=== PATIENT | male | born 1965 | race Caucasian/White ===

== ENCOUNTER → 2023-01-11 16:53 | Outpatient (BNVA) | payer OTHER, SELFPAY | PROVIDERS: Visit Provider Nurse Practitioner Family | DX: Z20.2 Contact with and (suspected) exposure to infections with a predominantly sexual mode of transmission (principal); L03.032 Cellulitis of left toe; Z13.220 Encounter for screening for lipoid disorders; M79.675 Pain in left toe(s); G62.9 Polyneuropathy, unspecified; R20.2 Paresthesia of skin; M79.601 Pain in right arm; M79.602 Pain in left arm | CPT/HCPCS: 80053; 80061; 82306; 82607; 82746; 83036; 84550; 87491; 87591; 87661 ==

== ENCOUNTER → 2023-01-12 | Outpatient (BNVA) | payer OTHER, SELFPAY | PROVIDERS: Visit Provider Nurse Practitioner Family | DX: Z20.2 Contact with and (suspected) exposure to infections with a predominantly sexual mode of transmission (principal) | CPT/HCPCS: 87491; 87591 ==

== ENCOUNTER 2023-02-07 15:01 | Emergency (ER) | payer OTHER, SELFPAY ==
[2023-02-07 15:06] VITALS: BP 153/95; PULSE 80; RESP 16; TEMP 36.8; O2SAT 96; BMI 26.6
--- NOTE | 2023-02-07 15:16 | ED_ITS ---
HPI - Extremity Problem General: Chief complaint: Extremity Problem,Nontraumatic Stated complaint: right hand pain Time Seen by Provider: 02/07/23 15:12 Source: patient Mode of arrival: ambulatory Limitations: no limitations History of Present Illness: Patient is a nice 57-year-old male who presents to ED today with a complaint of swelling and redness to the right hand. Patient states he initially began noticing some itching to the dorsum of the hand while at work on Tuesday. He states the following day the entire hand was swollen and erythematous. He states he was seen at [facility] and received an IM steroid shot. He was given prescriptions for Bactrim as well as a Medrol Dosepak which he has yet to fill. He states the day following the steroid his hand swelling and redness seemed vastly improved but states today he began noticing swelling and redness yet again. He states most of his symptoms seem focused to the fourth and fifth MCP joints. He denies any recent injury such as cuts or scrapes. 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 He has not noticed any red streaking up his arm. No fevers. States hand is still itchy. MD Complaint: extremity pain, extremity swelling, joint swelling and joint pain Onset (ago): day(s) Pain Consistency: constant Location: right and upper extremity Quality: other (itching) Relieving factors: nothing Exacerbating factors: range of motion Associated symptoms: Reports no associated symptoms; Deny fever(s) Review of Systems Const: Denies: fever(s), chills, body aches, fatigue or malaise Musc: Reports: extremity pain, extremity swelling, joint pain, joint swelling and joint warmth; Denies: neck pain or back pain Neuro: Denies: numbness in extremities, weakness in extremities or sensory changes Physical Exam Const: COMMON NORMALS: no acute distress, average body habitus, patient or iented x3, no limitations, healthy appearing, alert and well nourished Resp: COMMON NORMALS: normal respiratory effort and clear to auscultation b ilaterally AUSCULTATION: clear to auscultation bilaterally Cardio: COMMON NORMALS: regular rate and regular rhythm RATE: regular rate RHYTHM: regular rhythm Extremity: COMMON NORMALS: capillary refill normal GENERAL: Yes normal exam except as noted RIGHT UPPER EXTREMITY: Yes hand & digits OTHER: pt has edema and erythema affecting the ulnar dorsal aspect of his R hand with localized swelling overlying the 5th MCP joint; warmth appreciated; no bites, scratches, wounds, cuts, etc noted; no lymphangitic streaking; patient's digits are easily mobile and pain does not seem out of proportion to exam Neuro: COMMON NORMALS: patient oriented x3 SENSORIUM/ORIENTATION: Yes alert Course Vital Signs: Vital signs: Vital Signs Temperature 98.2 F 02/07/23 15:06 Pulse Rate 90 02/07/23 18:15 Respiratory Rate 16 02/07/23 18:15 Blood Pressure 138/94 02/07/23 18:15 Pulse Oximetry 95 02/07/23 18:00 Oxygen Delivery Me thod Room Air 02/07/23 16:48 MDM - Extremity (Nontraumatic) Medical Decision Making Patient here with edema, redness, and warmth affecting the dorsal ulnar aspect of the right hand. Patient maintains full range of motion of his digits and chey n does not seem to be out of proportion to exam. At this point I would have a low suspicion for an infectious tenosynovitis. This would be unlikely as this rarely affects extensor tendon sheaths. Given the history of working at a tire shop and often using tools that he has to crank with his right hand, he often feels like the ulnar aspect of his right hand is strained. This could support more of an inflammatory tendon process. He did get a substantial improvement with one IM injection of steriods from [facility]. Other DDx includes tissue infection, gout, pseudogout, rheumatoid arthritis. He did present to clinic last month with a red/swollen great toe (possibly gout?) Again, based clinically at this time lower suspicion for infectious tenosynovitis or septic arthritis. I am going to treat him with IV dexamethasone, toradol and vanc (I think infection is less likely but as a precautionary). I would like him to fill his prescriptions for Bactrim and Medrol Dosepak. Want him to follow-up with primary care in 48 hours. Strict return to ED precautions given. Of note he was recently treated for Trichomonas. He states his gonorrhea/chlamydia was negative. Lab Data 02/07/23 15:46 02/07/23 15:46 Laboratory Results WBC 15.04 10^3/uL (3.29-11.43) H 02/07/23 15:46 RBC 4.67 10^6/uL (3.85-5.65) 02/07/23 15:46 Hgb 15.30 g/dL (11.27-16.99) 02/07/23 15:46 Hct 43.4 % (37-53) 02/07/23 15:46 MCV 92.9 fl (82-101) 02/07/23 15:46 MCH 32.8 pg (27-33) 02/07/23 15:46 MCHC 35.3 g/dL (30-55) 02/07/23 15:46 RDW 11.9 % (12.1-15.1) L 02/07/23 15:46 Plt Count 271 10^3/cmm (157-399) 02/07/23 15:46 MPV 9.0 fL (7.4-10.4) 02/07/23 15:46 Neut % (Auto) 80.4 % 02/07/23 15:46 Lymph % (Auto) 9.8 % 02/07/23 15:46 [place] % (Auto) 6.9 % 02/07/23 15:46 Eos % (Auto) 0.0 % 02/07/23 15:46 Baso % (Auto) 0.2 % 02/07/23 15:46 Neut # (Auto) 12.08 10^3/uL (1.8-7.7) H 02/07/23 15:46 Lymph # (Auto) 1.5 10^3/uL (0.8-4.8) 02/07/23 15:46 [place] # (Auto) 1.0 10^3/uL (0.2-0.9) H 02/07/23 15:46 Eos # (Auto) 0.0 10^3/uL (0.0-0.8) 02/07/23 15:46 Baso # (Auto) 0.0 10^3/uL (0.0-0.1) 02/07/23 15:46 Nucleated RBC % (auto) 0 % 02/07/23 15:46 Nucleated RBCs # 0.0 /100WBC 02/07/23 15:46 ESR 18 mm/hr (0-10) H 02/07/23 15:46 Sodium 140 mmol/L (136-145) 02/07/23 15:46 Potassium 4.5 mmol/L (3.5-5.1) 02/07/23 15:46 Chloride 102 mmol/L (98-107) 02/07/23 15:46 Carbon Dioxide 26 mmol/L (22-29) 02/07/23 15:46 Anion Gap 16.5 (5-19) 02/07/23 15:46 BUN 22 mg/dL (6-20) H 02/07/23 15:46 Creatinine 0.8 mg/dL (0.7-1.2) 02/07/23 15:46 GFR Calculation 99.6 mL/min (90-130) 02/07/23 15:46 Glucose 140 mg/dL (65-115) H 02/07/23 15:46 Calculated Osmolality 296 mOsm/kg (285-295) H 02/07/23 15:46 Lactic Acid 1.4 mmol/L (0.5-2.2) 02/07/23 15:46 Calcium 10.2 mg/dL (8.5-10.5) 02/07/23 15:46 Total Bilirubin 0.4 mg/dL (0.15-1.2) 02/07/23 15:46 AST 16 U/L (0-40) 02/07/23 15:46 ALT 19 U/L (0-41) 02/07/23 15:46 Alkaline Phosphatase 133 U/L (40-130) H 02/07/23 15:46 C-Reactive Protein 54.4 mg/L (0.0-4.9) H 02/07/23 15:46 Total Protein 7.8 g/dL (6.6-8.7) 02/07/23 15:46 Albumin 4.8 g/dL (3.5-5.2) 02/07/23 15:46 Globulin 3.0 g/dL (1.3-4.6) 02/07/23 15:46 All radiology interpretation(s) finalized by discharge Discharge Plan Discharge Patient Disposition: Home Clinical Impression: Tenosynovitis of right hand Condition: Stable Prescriptions: No Action No Known Home Medications Discharge Orders: Discharge ED (Routine); Ordered 02/07/23 Ordered By: Annie Guy Activity Restrictions/Additional Instructions: As we discussed I want you to fill your prescriptions for the Bactrim antibiotic and Medrol Dosepak steroid and begin taking immediately. In addition I want you to start taking 600-800 mg of ibuprofen every 6-8 hours. I would like you to follow-up with your primary care provider in 48 hours. As we discussed if symptoms worsen (worsening pain, swelling, redness, red streaking up your arm, fevers, or any other concerning symptom) want you to immediately return to the emergency department. Coding Level of Care Code ED Weighing Station Operator for Emily Mercado
[2023-02-07 15:21] VITALS: O2SAT 91
--- NOTE | 2023-02-07 15:25 | XR_ITS ---
WS: [id number] EXAMINATION: XR hand RT min 3V* [id number] REASON FOR EXAM: redness/swelling COMPARISON: None available. ORDER DATE: 02/07/2023 3:26 PM FINDINGS/IMPRESSION: The location of the clinical findings noted above is not specified. There is a metallic density perha ps a foreign body immediately lateral to the second MCP joint There is generalized joint mild space narrowing. There appears to be soft tissue edema along the dors al medial aspect of the hand approximating the region of the fifth MCP joint no specific sign of any opaque foreign body in this region.. There are no acute fractures or dislocations.
[2023-02-07 15:53] LABS: Basophils % 0.2 %; Hematocrit 43.4 % (37-53); Lymphocytes # 1.5 10^3/uL (0.8-4.8); Lymphocytes % 9.8 %; Mean Corpuscular HGB Conc 35.3 g/dL (30-55); Mean Corpuscular Hemoglobin 32.8 pg (27-33); Mean Corpuscular Volume 92.9 fl (82-101); Monocytes % 6.9 %; Neutrophils # 12.08 10^3/uL (1.8-7.7); Neutrophils % 80.4 %; Nucleated Red Blood Cells % 0 %; Platelet Count 271 10^3/cmm (157-399); Red Blood Count 4.67 10^6/uL (3.85-5.65); Red Cell Distribution Width 11.9 % (12.1-15.1); White Blood Count 15.04 10^3/uL (3.29-11.43)
[2023-02-07 15:54] LABS: Erythrocyte Sedimentation Rate 18 mm/hr (0-10)
[2023-02-07 16:12] LABS: Alanine Aminotransferase 19 U/L (0-41); Albumin Level 4.8 g/dL (3.5-5.2); Alkaline Phosphatase 133 U/L (40-130); Anion Gap 16.5 (5-19); Aspartate Amino Transferase 16 U/L (0-40); Blood Urea Nitrogen 22 mg/dL (6-20); C Reactive Protein 54.4 mg/L (0.0-4.9); Calcium 10.2 mg/dL (8.5-10.5); Carbon Dioxide 26 mmol/L (22-29); Chloride 102 mmol/L (98-107); Glomerular Filtration Rate 99.6 mL/min (90-130); Glucose 140 mg/dL (65-115); Osmolality Calculated 296 mOsm/kg (285-295); Potassium 4.5 mmol/L (3.5-5.1); Sodium 140 mmol/L (136-145); Total Bilirubin 0.4 mg/dL (0.15-1.2); Total Protein 7.8 g/dL (6.6-8.7)
[2023-02-07 16:13] LABS: Lactic Sepsis W/Reflex 1.4 mmol/L (0.5-2.2)
[2023-02-07] MEDS: ketorolac 30 mg/mL INJ IVP (16:39)
[2023-02-07] MEDS: dexamethasone 4 mg/mL INJ 8 MG IVP (16:39)
[2023-02-07 16:48] VITALS: BP 138/102; PULSE 75; RESP 16; O2SAT 97
[2023-02-07] MEDS: vancomycin 1,000 MG in sodium chloride 0.9% 250 ML 250 MG IV (16:58)
[2023-02-07 18:00] VITALS: BP 138/94; PULSE 90; RESP 16; O2SAT 95
[2023-02-07 18:15] VITALS: BP 138/94; PULSE 90; RESP 16
== END 2023-02-07 18:16 | disposition home or self-care (01) ==
PROVIDERS: Emergency Provider Physician Assistant
DX: M65.841 Other synovitis and tenosynovitis, right hand (principal)
CPT/HCPCS: 73130; 80053; 83605; 85025; 85651; 86140; 96374; 96375; 99284; J1100; J1885; J3370; J7050

== ENCOUNTER → 2023-04-14 11:24 | Outpatient (BNVA) | payer OTHER, SELFPAY | PROVIDERS: Visit Provider Nurse Practitioner Family | DX: J06.9 Acute upper respiratory infection, unspecified (principal); J32.0 Chronic maxillary sinusitis; R20.2 Paresthesia of skin; M79.601 Pain in right arm; M79.602 Pain in left arm; R20.0 Anesthesia of skin; R53.83 Other fatigue | CPT/HCPCS: 82607; 82746; 84402; 84403; 87486; 87581; 87633 ==

== ENCOUNTER 2024-05-01 10:29 | Emergency (ER) | payer OTHER, SELFPAY ==
[2024-05-01 10:36] VITALS: BP 144/91; PULSE 72; RESP 18; TEMP 36.8; O2SAT 99; BMI 26.6
--- NOTE | 2024-05-01 12:13 | ED_ITS ---
HPI - Extremity Problem 2 General: Chief complaint: Extremity Problem,Nontraumatic Stated complaint: feet pain Time Seen by Provider: 05/01/24 11:58 Source: patient Mode of arrival: ambulatory Limitations: no limitations History of Present Illness: Patient is a 58-year-old male presents to ED today with a complaint of burning to his bilateral feet. Patient states symptoms have been present for several months but looking at previous documentation, he has seen his primary care provider for this as far back as February 2023. It looks like he has been treated with duloxetine as well as gabapentin. Patient states these medications did not work. Looks like his dose of gabapentin was 100 mg 3 times daily. He does not ever remember this medication being titrated up to effect. He states at some point he was post to have nerve conduction studies as well as arterial ultrasounds but these were never performed. Patient states he is not a diabetic that he is aware of. He states he is having trouble sleeping due to the burning. He has not noticed any color or temperature changes to his legs or feet. No claudication-like symptoms. MD Complaint: extremity pain Onset (ago): month(s) Pain Consistency: constant Location: right and lower extremity Radiation: none Relieving factors: nothing Exacerbating factors: nothing Associated symptoms: Reports no associated symptoms; Deny chest pain, fever(s) or rash Related Data Home Medications Medication Instructions Recorded Confirmed ibuprofen 200 mg tablet 600 mg PO Q6H PRN Pain 05/01/24 05/01/24 Previous Rx's Medication Instructions Recorded gabapentin 300 mg capsule 300 mg PO DAILY #60 caps 05/01/24 Allergies Allergy/AdvReac Type Severity Reaction Status Date / Time No Known Allergies Allergy Verified 05/01/24 10:38 Review of Systems 2 Const: Denies: fever(s), chills, body aches, fatigue or malaise Card: Denies: chest pain Resp: Denies: dyspnea GI: Denies: abdominal pain Musc: Reports: extremity pain; Denies: back pain, extremity swelling, joint redness, joint warmth, limited range of motion, muscle cramps or muscle weakness Skin/Breast: Denies: rash Neuro: Reports: sensory changes (bilateral feet); Denies: headache(s) or weakness in extremities Physical Exam 2 Const: COMMON NORMALS: no acute distress, average body habitus, patient oriented x3, no limitations, healthy appearing, alert and well nourished G ENERAL APPEARANCE: cooperative ORIENTATION/CONSCIOUSNESS: Yes awake, Yes oriented to person, Yes oriented to place and Yes oriented to time Resp: COMMON NORMALS: normal respiratory effort and clear to auscultation bilaterally AUSCULTATION: clear to auscultation bilaterally Cardio: COMMON NORMALS: regular rate and regular rhythm RATE: regular rate RHYTHM: regular rhythm Back/Pelvis: COMMON NORMALS: thoracic and lumbar spine normal to inspection, no thoracic nor lumbar tenderness, thoraco-lumbar ROM normal and straight leg raise negative bilaterally Extremity: COMMON NORMALS: full ROM, capillary refill normal, no clubbing, cyanosis or edema, no calf tenderness and no pedal edema GENERAL: Yes normal exam except as noted OTHER: bilateral feet are tender to touch; no erythema/edema noted; DP/PT pulses are easily palpated; onychomycosis to bilateral toenails/fingernails; no open sores/wounds Neuro: COMMON NORMALS: patient oriented x3, moves all extremities, no focal motor deficits and gait normal SENSORIUM/ORIENTATION: Yes alert, Yes oriented to person, Yes oriented to place and Yes oriented to time Skin: COMMON NORMALS: no rashes or lesions noted GENERAL SKIN EXAM: no rashes or lesions noted TRAUMA: no lacerations or abrasions Course 2 Vital Signs: Vital signs: Vital Signs Temperature 98.2 F 05/01/24 10:36 Pulse Rate 72 05/01/24 10:36 Respiratory Rate 18 05/01/24 10:36 Blood Pressure 144/91 05/01/24 10:36 Pulse Oximetry 99 05/01/24 10:36 Oxygen Delivery Me thod Room Air 05/01/24 10:36 MDM - Extremity (Nontraumatic) Medical Decision Making Patient's symptoms are chronic and likely related to neuropathy. Discussed various etiologies for this and ultimately he needs further PCP follow up. States he has not been seen in quite some time because he lost insurance but is planning on getting this back. Labs obtained here and unremarkable. He was at once time placed on gabapentin 100mg TID which is low and never tapered up. I think it is reasonable to start him at 300mg daily and have him increase this to 300mg TID and would encourage PCP follow up as this can further be increased based on effect. I think further evaluation probably needs to be done-just not emergently today. Medical Records I reviewed the patient's medical records. Lab Data I reviewed the patient's lab results. 05/01/24 12:37 05/01/24 12:37 Laboratory Results WBC 5.78 10^3/uL (3.29-11.43) 05/01/24 12:37 RBC 4.81 10^6/uL (3.85-5.65) 05/01/24 12:37 Hgb 15.50 g/dL (11.27-16.99) 05/01/24 12:37 Hct 46.5 % (37-53) 05/01/24 12:37 MCV 96.7 fl (82-101) 05/01/24 12:37 MCH 32.2 pg (27-33) 05/01/24 12:37 MCHC 33.3 g/dL (30-55) 05/01/24 12:37 RDW 11.5 % (12.1-15.1) L 05/01/24 12:37 Plt Count 239 10^3/cmm (157-399) 05/01/24 12:37 MPV 8.7 fL (7.4-10.4) 05/01/24 12:37 Neut % (Auto) 58.7 % 05/01/24 12:37 Lymph % (Auto) 31.3 % 05/01/24 12:37 [place] % (Auto) 7.1 % 05/01/24 12:37 Eos % (Auto) 1.2 % 05/01/24 12:37 Baso % (Auto) 0.5 % 05/01/24 12:37 Neut # (Auto) 3.39 10^3/uL (1.8-7.7) 05/01/24 12:37 Lymph # (Auto) 1.8 10^3/uL (0.8-4.8) 05/01/24 12:37 [place] # (Auto) 0.4 10^3/uL (0.2-0.9) 05/01/24 12:37 Eos # (Auto) 0.1 10^3/uL (0.0-0.8) 05/01/24 12:37 Baso # (Auto) 0.0 10^3/uL (0.0-0.1) 05/01/24 12:37 Nucleated RBC % (auto) 0 % 05/01/24 12:37 Nucleated RBCs # 0.0 /100WBC 05/01/24 12:37 Sodium 140 mmol/L (136-145) 05/01/24 12:37 Potassium 4.3 mmol/L (3.5-5.1) 05/01/24 12:37 Chloride 102 mmol/L (98-107) 05/01/24 12:37 Carbon Dioxide 25 mmol/L (22-29) 05/01/24 12:37 Anion Gap 17.3 (5-19) 05/01/24 12:37 BUN 12 mg/dL (6-20) 05/01/24 12:37 Creatinine 0.7 mg/dL (0.7-1.2) 05/01/24 12:37 GFR Calculation 115.8 mL/min (90-130) 05/01/24 12:37 Glucose 92 mg/dL (65-115) 05/01/24 12:37 Calculated Osmolality 289 mOsm/kg (285-295) 05/01/24 12:37 Calcium 9.5 mg/dL (8.5-10.5) 05/01/24 12:37 Magnesium 1.8 mg/dL (1.7-2.3) 05/01/24 12:37 Total Bilirubin 0.6 mg/dL (0.15-1.2) 05/01/24 12:37 AST 15 U/L (0-40) 05/01/24 12:37 ALT 14 U/L (0-41) 05/01/24 12:37 Alkaline Phosphatase 127 U/L (40-130) 05/01/24 12:37 Total Protein 7.1 g/dL (6.6-8.7) 05/01/24 12:37 Albumin 4.4 g/dL (3.5-5.2) 05/01/24 12:37 Globulin 2.7 g/dL (1.3-4.6) 05/01/24 12:37 No radiology studies performed this visit Discharge Plan Discharge Patient Disposition: Home Clinical Impression: Numbness and tingling of both feet Condition: Stable Prescriptions: New gabapentin 300 mg capsule 300 mg PO DAILY Qty: 60 0RF Rx Instructions: Take 300mg PO QD x 1 day, then 300mg PO BID x 1 day, then 300mg PO TID thereafter No Action ibuprofen 200 mg Tablet 600 mg PO Q6H PRN (Reason: Pain) Discharge Orders: Discharge ED (Routine); Ordered 05/01/24 Ordered By: Annie Guy Patient Instructions: Peripheral Neuropathy Activity Restrictions/Additional Instructions: Blood work here is unremarkable. I will place you back on gabapentin with a plan to titrate this upward over the next week (up to 900 mg daily). This can further be titrated up based on response by primary care. Recommend he follow- up with him in the next 1 to 2 weeks for further evaluation of your neuropathy. As we discussed, this does require further evaluation through primary care. If you are not able to obtain insurance, you may qualify for financial sales consultant through the hospital. Registration can provide you with this paperwork. Coding Level of Care Code ED Circuits Engineer for Emily Mercado
--- NOTE | 2024-05-01 12:22 | PC.PHAR ---
Pt states he needs more than ibuprofen 200mg so he can stay working.
[2024-05-01 12:49] LABS: Basophils % 0.5 %; Eosinophils # 0.1 10^3/uL (0.0-0.8); Eosinophils % 1.2 %; Hematocrit 46.5 % (37-53); Lymphocytes # 1.8 10^3/uL (0.8-4.8); Lymphocytes % 31.3 %; Mean Corpuscular HGB Conc 33.3 g/dL (30-55); Mean Corpuscular Hemoglobin 32.2 pg (27-33); Mean Corpuscular Volume 96.7 fl (82-101); Mean Platelet Volume 8.7 fL (7.4-10.4); Monocytes # 0.4 10^3/uL (0.2-0.9); Monocytes % 7.1 %; Neutrophils # 3.39 10^3/uL (1.8-7.7); Neutrophils % 58.7 %; Nucleated Red Blood Cells % 0 %; Platelet Count 239 10^3/cmm (157-399); Red Blood Count 4.81 10^6/uL (3.85-5.65); Red Cell Distribution Width 11.5 % (12.1-15.1); White Blood Count 5.78 10^3/uL (3.29-11.43)
[2024-05-01 13:04] LABS: Alanine Aminotransferase 14 U/L (0-41); Albumin Level 4.4 g/dL (3.5-5.2); Alkaline Phosphatase 127 U/L (40-130); Anion Gap 17.3 (5-19); Aspartate Amino Transferase 15 U/L (0-40); Blood Urea Nitrogen 12 mg/dL (6-20); Calcium 9.5 mg/dL (8.5-10.5); Carbon Dioxide 25 mmol/L (22-29); Chloride 102 mmol/L (98-107); Globulin 2.7 g/dL (1.3-4.6); Glomerular Filtration Rate 115.8 mL/min (90-130); Glucose 92 mg/dL (65-115); Magnesium 1.8 mg/dL (1.7-2.3); Osmolality Calculated 289 mOsm/kg (285-295); Potassium 4.3 mmol/L (3.5-5.1); Sodium 140 mmol/L (136-145); Total Bilirubin 0.6 mg/dL (0.15-1.2); Total Protein 7.1 g/dL (6.6-8.7)
[2024-05-01 13:52] VITALS: BP 121/83; PULSE 79; O2SAT 98
== END 2024-05-01 13:55 | disposition home or self-care (01) ==
PROVIDERS: Emergency Provider Physician Assistant
DX: R20.0 Anesthesia of skin (principal); R20.2 Paresthesia of skin
CPT/HCPCS: 36415; 80053; 83735; 85025; 99283

== ENCOUNTER 2024-09-10 15:21 | Emergency (ER) | payer SELFPAY ==
[2024-09-10 15:30] VITALS: BP 130/94; PULSE 108; TEMP 37.1; O2SAT 97; BMI 26.9
--- NOTE | 2024-09-10 18:00 | W.ED.EXTPRO ---
HPI - Extremity Problem General: Chief complaint: Extremity Problem,Nontraumatic Stated complaint: toes turned and turning purple both feet Time Seen by Provider: 09/10/24 17:50 History of Present Illness: 58-year-old male presents emergency room with redness and inflammation slight swelling and pain to his left second toe. He does not recall any particular injury to it he has not had any drainage. He says he is chronically has pain to his toes but he says never he walks barefoot on a cold service he his toes cramp and turn purple. Patient cannot recall any injury to his feet. No fever sweats or chills Associated symptoms: Deny chest pain, fever(s) or rash Related Data Home Medications ?Medication ?Instructions ?Recorded ?Confirmed ibuprofen 200 mg tablet 600 mg PO Q6H PRN Pain 05/01/24 05/01/24 Previous Rx's ?Medication ?Instructions ?Recorded gabapentin 300 mg capsule 300 mg PO DAILY #60 caps 05/01/24 Allergies Allergy/AdvReac Type Severity Reaction Status Date / Time Penicillins Allergy Unknown Verified 09/10/24 15:37 Review of Systems Const: Denies: fever(s) or chills Card: Denies: chest pain Resp: Denies: dyspnea : Denies: dysuria, urinary frequency or urinary urgency Musc: Reports: extremity pain (Left second toe); Denies: neck pain or back pain Skin/Breast: Denies: rash Physical Exam Const: COMMON NORMALS: no acute distress GENERAL APPEARANCE: cooperative and comfortable ORIENTATION/CONSCIOUSNESS: Yes awake, Yes oriented to person, Yes oriented to place and Yes oriented to time HENMT: COMMON NORMALS: normocephalic, atraumatic and hearing grossly normal bilaterally HEAD & SCALP: normocephalic and atraumatic Resp: COMMON NORMALS: normal respiratory effort, No retractions, No use of accessory muscles and clear to auscultation bilaterally AUSCULTATION: clear to auscultation bilaterally Cardio: COMMON NORMALS: regular rate, regular rhythm and No murmurs present (Cardio) RATE: regular rate RHYTHM: regular rhythm Extremity: COMMON NORMALS: capillary refill normal, no clubbing, cyanosis or edema, no calf tenderness and no pedal edema OTHER: Left second toe has hematoma on the dorsum. There is no fluctuant areas no signs of infection no active drainage no laceration no obvious deformity Neuro: SENSORIUM/ORIENTATION: Yes oriented to person, Yes oriented to place and Yes oriented to time Skin: COMMON NORMALS: no rashes or lesions noted GENERAL SKIN EXAM: no rashes or lesions noted Course Vital Signs: Vital signs: Vital Signs Temperature 98.8 F 09/10/24 15:30 Pulse Rate 83 09/10/24 19:10 Respiratory Rate 18 09/10/24 19:10 Blood Pressure 173/114 09/10/24 19:10 Pulse Oximetry 95 09/10/24 19:10 Oxygen Delivery Me thod Room Air 09/10/24 18:57 MDM - Extremity (Nontraumatic) Medical Decision Making X-ray of the left foot shows a second toe fracture. Discussed with the patient the results. He was placed in a postop shoe offered crutches he declined we offered referral to podiatry he also declined this. He was quite concerned about his toes turning purple at this time he has good pulses has good capillary refill in all of his toes there is some redness and erythema in the area of the dorsum of the second toe but no purulent drainage no sign of abscess believe this is ecchymosis from his fracture. Will discharge the patient home encouraged follow-up with podiatry if he wishes. Lab Data I reviewed the patient's lab results. 09/10/24 18:12 09/10/24 18:12 Radiology Impressions Foot X-Ray 09/10/24 18:07 IMPRESSION: Mildly complex transverse to oblique acute fracture without significant displacement involving the distal 3rd of the middle phalanx of the left 2nd toe. Laboratory Results WBC 7.37 10^3/uL (3.29-11.43) 09/10/24 18:12 RBC 4.77 10^6/uL (3.85-5.65) 09/10/24 18:12 Hgb 15.40 g/dL (11.27-16.99) 09/10/24 18:12 Hct 45.0 % (37-53) 09/10/24 18:12 MCV 94.3 fl (82-101) 09/10/24 18:12 MCH 32.3 pg (27-33) 09/10/24 18:12 MCHC 34.2 g/dL (30-55) 09/10/24 18:12 RDW 12.0 % (12.1-15.1) L 09/10/24 18:12 Plt Count 213 10^3/cmm (157-399) 09/10/24 18:12 MPV 9.0 fL (7.4-10.4) 09/10/24 18:12 Neut % (Auto) 51.3 % 09/10/24 18:12 Lymph % (Auto) 36.9 % 09/10/24 18:12 [place] % (Auto) 7.9 % 09/10/24 18:12 Eos % (Auto) 1.4 % 09/10/24 18:12 Baso % (Auto) 0.5 % 09/10/24 18:12 Neut # (Auto) 3.78 10^3/uL (1.8-7.7) 09/10/24 18:12 Lymph # (Auto) 2.7 10^3/uL (0.8-4.8) 09/10/24 18:12 [place] # (Auto) 0.6 10^3/uL (0.2-0.9) 09/10/24 18:12 Eos # (Auto) 0.1 10^3/uL (0.0-0.8) 09/10/24 18:12 Baso # (Auto) 0.0 10^3/uL (0.0-0.1) 09/10/24 18:12 Nucleated RBC % (auto) 0 % 09/10/24 18:12 Nucleated RBCs # 0.0 /100WBC 09/10/24 18:12 Sodium 138 mmol/L (136-145) 09/10/24 18:12 Potassium 4.1 mmol/L (3.5-5.1) 09/10/24 18:12 Chloride 99 mmol/L (98-107) 09/10/24 18:12 Carbon Dioxide 23 mmol/L (22-29) 09/10/24 18:12 Anion Gap 20.1 (5-19) H 09/10/24 18:12 BUN 18 mg/dL (6-20) 09/10/24 18:12 Creatinine 0.7 mg/dL (0.7-1.2) 09/10/24 18:12 GFR Calculation 115.8 mL/min (90-130) 09/10/24 18:12 Glucose 91 mg/dL (65-115) 09/10/24 18:12 Calculated Osmolality 287 mOsm/kg (285-295) 09/10/24 18:12 Calcium 9.9 mg/dL (8.5-10.5) 09/10/24 18:12 Total Bilirubin 0.7 mg/dL (0.15-1.2) 09/10/24 18:12 AST 18 U/L (0-40) 09/10/24 18:12 ALT 20 U/L (0-41) 09/10/24 18:12 Alkaline Phosphatase 122 U/L (40-130) 09/10/24 18:12 Total Protein 7.7 g/dL (6.6-8.7) 09/10/24 18:12 Albumin 4.7 g/dL (3.5-5.2) 09/10/24 18:12 Globulin 3.0 g/dL (1.3-4.6) 09/10/24 18:12 All radiology interpretation(s) finalized by discharge Discharge Plan Discharge Patient Disposition: Home Clinical Impression: Closed fracture of second toe of left foot Condition: Stable Prescriptions: No Action ibuprofen 200 mg Tablet 600 mg PO Q6H PRN (Reason: Pain) gabapentin 300 mg capsule 300 mg PO DAILY Qty: 60 0RF Rx Instructions: Take 300mg PO QD x 1 day, then 300mg PO BID x 1 day, then 300mg PO TID thereafter Discharge Orders: Discharge ED (Routine); Ordered 09/10/24 Ordered By: Darci Caceres Discharge Diet: Usual diet Discharge Activity: Limit activity as instructed Patient Instructions: Opioid Safety, Pain Management Activity Restrictions/Additional Instructions: Thank you for choosing [facility] for your healthcare needs today. It is very important that you follow up as instructed or that you return to the Emergency Department should you have concerns or if your condition changes or worsens in any way. You are seen in the emergency room complaining discomfort here toes and discoloring of your left second toe. X-rays show you have a fracture. We offered referral to podiatry which you declined. If you change your mind anytime you develop a podiatry office they will be able to see you. In the meantime avoid putting stress on the toe you should wear the postop shoe or a very thick soled shoe to prevent flexion pressure on that toe. Print Language: [place] Coding Level of Care Code ED Ampoule Filler And Sealer for Emily Mercado
[2024-09-10 18:07] VITALS: BP 157/131; PULSE 83; RESP 16; O2SAT 97
--- NOTE | 2024-09-10 18:07 | XRR_ITS ---
PROCEDURE INFORMATION: Exam: XR Left Foot Exam date and time: 09/10/2024 6:09 PM Age: 58 years old Clinical indication: Pain; Toes; Left; Additional info: Pain 2nd toe TECHNIQUE: Imaging protocol: Radiologic exam of the left foot. Views: 3 or more views. COMPARISON: No relevant prior studies available. FINDINGS: Bones/joints: Mildly complex transverse to oblique acute fracture seen involving the distal 3rd of the middle phalanx of the left 2nd toe without significant displacement/angulation. No definite intra-articular involvement. No other acute fracture or dislocation is seen about the left foot. Mild calcaneal spur/enthesophyte formation noted. Soft tissues: Mild soft tissue swelling 2nd toe. XR/XR foot LT min 3V* [id number] IMPRESSION: Mildly complex transverse to oblique acute fracture without significant displacement involving the distal 3rd of the middle phalanx of the left 2nd toe.
[2024-09-10 18:16] LABS: Basophils % 0.5 %; Eosinophils # 0.1 10^3/uL (0.0-0.8); Eosinophils % 1.4 %; Lymphocytes # 2.7 10^3/uL (0.8-4.8); Lymphocytes % 36.9 %; Mean Corpuscular HGB Conc 34.2 g/dL (30-55); Mean Corpuscular Hemoglobin 32.3 pg (27-33); Mean Corpuscular Volume 94.3 fl (82-101); Monocytes # 0.6 10^3/uL (0.2-0.9); Monocytes % 7.9 %; Neutrophils # 3.78 10^3/uL (1.8-7.7); Neutrophils % 51.3 %; Nucleated Red Blood Cells % 0 %; Platelet Count 213 10^3/cmm (157-399); Red Blood Count 4.77 10^6/uL (3.85-5.65); White Blood Count 7.37 10^3/uL (3.29-11.43)
[2024-09-10 18:33] LABS: Alanine Aminotransferase 20 U/L (0-41); Albumin Level 4.7 g/dL (3.5-5.2); Alkaline Phosphatase 122 U/L (40-130); Anion Gap 20.1 (5-19); Aspartate Amino Transferase 18 U/L (0-40); Blood Urea Nitrogen 18 mg/dL (6-20); Calcium 9.9 mg/dL (8.5-10.5); Carbon Dioxide 23 mmol/L (22-29); Chloride 99 mmol/L (98-107); Creatinine Clr Calc Pharmacy 122.7423; Glomerular Filtration Rate 115.8 mL/min (90-130); Glucose 91 mg/dL (65-115); Osmolality Calculated 287 mOsm/kg (285-295); Potassium 4.1 mmol/L (3.5-5.1); Sodium 138 mmol/L (136-145); Total Bilirubin 0.7 mg/dL (0.15-1.2); Total Protein 7.7 g/dL (6.6-8.7)
[2024-09-10 18:57] VITALS: BP 133/92; PULSE 88; RESP 15; O2SAT 99
[2024-09-10 19:10] VITALS: BP 173/114; PULSE 83; RESP 18; O2SAT 95
== END 2024-09-10 19:09 | disposition home or self-care (01) ==
PROVIDERS: Emergency Provider Family Medicine
DX: S92.532A Displaced fracture of distal phalanx of left lesser toe(s), initial encounter for closed fracture (principal); X58.XXXA Exposure to other specified factors, initial encounter
CPT/HCPCS: 36415; 73630; 80053; 85025; 99284; E0114

== ENCOUNTER 2024-11-13 09:41 | Emergency (ER) | payer SELFPAY ==
[2024-11-13 09:44] VITALS: BP 144/88; PULSE 92; TEMP 37.2; O2SAT 95
--- NOTE | 2024-11-13 09:57 | XR_ITS ---
WS: [id number] Exam: XR chest 1V portable [id number] Date/Time of Exam: 11/13/2024 10:17 AM Reason For Exam: chest pain No priors. Lungs are fully expanded and clear. Normal cardiomediastinal silhouette and regional bony elements. 2 x 1 mm metallic density superimposes the upper LEFT lung zone and could represent a foreign body or image artifact.. XR/XR chest 1V portable [id number] IMPRESSION: 1. Normal chest.
--- NOTE | 2024-11-13 09:57 | ECG_ITS ---
[facility] Test Date: 2024-11-13 Pat Name: Fabian Cervantes Department: Room: Gender: Male Director Service: : 1965 Requested By: Annie Guy Order Number: [id number] Marcus MD: Justin Lee M.D. Measurements Intervals [place] Rate: 90 P: 55 IN: 150 QRS: 9 QRSD: 87 T: 59 QT: 330 QTc: 404 Interpretive Statements SINUS RHYTHM INTERPRETATION BASED ON A DEFAULT AGE OF 40 YEARS No previous ECG available for comparison Electronically Signed On 11-13-2024 17:16:41 CDT by Justin Lee M.D. [id number]
[2024-11-13 10:33] VITALS: BP 150/93; PULSE 81; RESP 18; O2SAT 95
--- NOTE | 2024-11-13 10:36 | W.ED.BACK ---
HPI - Back Pain/Injury General: Chief Complaint: Back Pain/Injury Stated Complaint: chest pain thru&thru Time Seen by Provider: 11/13/24 10:09 Related Data Home Medications ?Medication ?Instructions ?Recorded ?Confirmed ibuprofen 200 mg tablet 600 mg PO Q6H PRN Pain 05/01/24 05/01/24 Previous Rx's ?Medication ?Instructions ?Recorded gabapentin 300 mg capsule 300 mg PO DAILY #60 caps 05/01/24 Allergies Allergy/AdvReac Type Severity Reaction Status Date / Time Penicillins Allergy Unknown Verified 11/13/24 09:55 Course Vital Signs: Vital signs: Vital Signs Temperature 99.0 F 11/13/24 09:44 Pulse Rate 92 11/13/24 09:44 Blood Pressure 144/88 11/13/24 09:44 Pulse Oximetry 95 11/13/24 09:44 Oxygen Delivery Me thod Room Air 11/13/24 09:44 Discharge Plan Discharge Condition: Stable Prescriptions: No Action ibuprofen 200 mg Tablet 600 mg PO Q6H PRN (Reason: Pain) gabapentin 300 mg capsule 300 mg PO DAILY Qty: 60 0RF Rx Instructions: Take 300mg PO QD x 1 day, then 300mg PO BID x 1 day, then 300mg PO TID thereafter Print Language: Japanese Coding Level of Care Code 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
--- NOTE | 2024-11-13 10:47 | CT_ITS ---
WS: [id number] Exam: CT abdomen pelvis w con* [id number] Date/Time of Exam: 11/13/2024 11:03 AM Reason For Exam: abdominal pain, back pain DLP: 960.[address] scans at [facility] use at least one of these dose optimization techniques: automated exposure control; mA and/or kV adjustment per patient size (includes targeted exams where dose is matched to clinical indication); or iterative reconstruction. Lower lung zones are clear. The liver, stomach, spleen and pancreas are unremarkable. The gallbladder appears normal. The abdominal aorta is normal in caliber. The IVC is patent. Normal adrenal glands. Unremarkable kidneys and renal collecting structures. No lymphadenopathy. Small bowel loops are unrem arkable. Normal appendix visualized. No significant large bowel abnormality demonstrated. No mass or lymphadenopathy in the pelvis. Urinary bladder is intact. Moderate degenerative changes in the lumbar spine. No abdominal wall defect. CT/CT abdomen pelvis w con* [id number] IMPRESSION: 1. No mass, lymphadenopathy or acute finding in the abdomen or pelvis.
--- NOTE | 2024-11-13 10:48 | W.ED.ABDPA2 ---
HPI - Abdominal Pain General: Chief Complaint: Back Pain/Injury Stated Complaint: chest pain thru&thru Time Seen by Provider: 11/13/24 10:09 Source: patient Mode of arrival: ambulatory Limitations: no limitations History of Present Illness: Patient is a 59-year-old male presents to ED today for medical evaluation. Patient states yesterday morning after he awoke, he noticed a small amount of low back pain while he was in the shower. He states on his drive to work his lower back pain began to acutely worsen. Patient states by the time he got to work he felt very nauseous and over the course of the day began developing significant generalized abdominal pain. Patient states he vomited several times throughout the day. He states by the time he got home he went straight to bed. He states he was up all night complaining that his abdomen hurt. He did not have any episodes of diarrhea. No fevers. He states he feels very fatigued today. He is still having lower back pain that he rates at a 6/10. Is having some trouble with urination but denies hematuria or dysuria. He does not complain of chest pain or SOB. MD elicited complaint: abdominal pain and other (back pain) Pertinent past history: none Onset (ago): day(s) Pain Consistency: constant Severity: moderate Migration to: no migration Exacerbating factors: movement Relieving factors: vomiting Associated Symptoms: Denies chills, fever(s) and syncope Related Data Home Medications ?Medication ?Instructions ?Recorded ?Confirmed ibuprofen 200 mg tablet 600 mg PO Q6H PRN Pain 05/01/24 05/01/24 Previous Rx's ?Medication ?Instructions ?Recorded gabapentin 300 mg capsule 300 mg PO DAILY #60 caps 05/01/24 Allergies Allergy/AdvReac Type Severity Reaction Status Date / Time Penicillins Allergy Unknown Verified 11/13/24 09:55 Review of Systems Const: Reports: fatigue; Denies: fever(s), chills, body aches or malaise Card: Denies: chest pain, palpitations, irregular heart rhythm, edema, swelling of feet/ankles, lightheadedness, syncope, pre-syncope, dyspnea on exertion, orthopnea, leg pain with exertion or acrocyanosis Course Vital Signs: Vital signs: Vital Signs Temperature 99.0 F 11/13/24 09:44 Pulse Rate 81 11/13/24 10:33 Respiratory Rate 16 11/13/24 12:23 Blood Pressure 150/93 11/13/24 10:33 Pulse Oximetry 96 11/13/24 12:23 Oxygen Delivery Me thod Room Air 11/13/24 10:33 MDM - Abdominal Pain Medical Decision Making Patient feeling much better on re-examination. His vital signs are stable. Blood work overall is nonactionable. UA is clear. Chest x-ray is normal. No findings on his abdomen/pelvis. He did tell me he ate crawfish the night before symptoms started so possibly a mild gastroenteritis? Baseline and repeat EKGs are nonischemic. Troponin was unremarkable. Patient will be allowed discharge. Recommend follow-up with primary care provider but he declines. Return ED precautions discussed. Medical Records I reviewed the patient's medical records. Lab Data I reviewed the patient's lab results. 11/13/24 11:08 11/13/24 12:18 Labs/Radiology: Radiology Impressions Chest X-Ray 11/13/24 09:57 IMPRESSION: 1. Normal chest. Abdomen/Pelvis CT 11/13/24 10:47 IMPRESSION: 1. No mass, lymphadenopathy or acute finding in the abdomen or pelvis. Laboratory Results WBC 4.26 10^3/uL (3.29-11.43) 11/13/24 11:08 RBC 4.56 10^6/uL (3.85-5.65) 11/13/24 11:08 Hgb 14.90 g/dL (11.27-16.99) 11/13/24 11:08 Hct 42.8 % (37-53) 11/13/24 11:08 MCV 93.9 fl (82-101) 11/13/24 11:08 MCH 32.7 pg (27-33) 11/13/24 11:08 MCHC 34.8 g/dL (30-55) 11/13/24 11:08 RDW 12.0 % (12.1-15.1) L 11/13/24 11:08 Plt Count 179 10^3/cmm (157-399) 11/13/24 11:08 MPV 10.9 fL (7.4-10.4) H 11/13/24 11:08 Neut % (Auto) 38.3 % 11/13/24 11:08 Lymph % (Auto) 31.9 % 11/13/24 11:08 [place] % (Auto) 9.6 % 11/13/24 11:08 Eos % (Auto) 1.6 % 11/13/24 11:08 Baso % (Auto) 0.5 % 11/13/24 11:08 Neut # (Auto) 1.63 10^3/uL (1.8-7.7) L 11/13/24 11:08 Lymph # (Auto) 1.4 10^3/uL (0.8-4.8) 11/13/24 11:08 [place] # (Auto) 0.4 10^3/uL (0.2-0.9) 11/13/24 11:08 Eos # (Auto) 0.1 10^3/uL (0.0-0.8) 11/13/24 11:08 Baso # (Auto) 0.0 10^3/uL (0.0-0.1) 11/13/24 11:08 Nucleated RBC % (auto) 0 % 11/13/24 11:08 Nucleated RBCs # 0.0 /100WBC 11/13/24 11:08 Sodium 136 mmol/L (136-145) 11/13/24 12:18 Potassium 4.2 mmol/L (3.5-5.1) 11/13/24 12:18 Chloride 100 mmol/L (98-107) 11/13/24 12:18 Carbon Dioxide 25 mmol/L (22-29) 11/13/24 12:18 Anion Gap 15.2 (5-19) 11/13/24 12:18 BUN 13 mg/dL (6-20) 11/13/24 12:18 Creatinine 0.8 mg/dL (0.7-1.2) 11/13/24 12:18 GFR Calculation 98.9 mL/min (90-130) 11/13/24 12:18 Glucose 90 mg/dL (65-115) 11/13/24 12:18 Calculated Osmolality 282 mOsm/kg (285-295) L 11/13/24 12:18 Calcium 8.4 mg/dL (8.5-10.5) L 11/13/24 12:18 Total Bilirubin 0.8 mg/dL (0.15-1.2) 11/13/24 12:18 AST 17 U/L (0-40) 11/13/24 12:18 ALT 15 U/L (0-41) 11/13/24 12:18 Alkaline Phosphatase 123 U/L (40-130) 11/13/24 12:18 Troponin T Baseline 8 ng/L (0-15) 11/13/24 12:18 Total Protein 6.3 g/dL (6.6-8.7) L 11/13/24 12:18 Albumin 3.9 g/dL (3.5-5.2) 11/13/24 12:18 Globulin 2.4 g/dL (1.3-4.6) 11/13/24 12:18 Lipase 25 U/L (13-60) 11/13/24 12:18 Urine Color Yellow (Yellow) 11/13/24 11:04 Urine Appearance Cloudy (CLEAR) A 11/13/24 11:04 Urine pH 6.0 (5-7) 11/13/24 11:04 Ur Specific [place] 1.019 (1.005-1.030) 11/13/24 11:04 Urine Protein Negative (Negative) 11/13/24 11:04 Urine Glucose (UA) Negative (Normal) 11/13/24 11:04 Urine Ketones Negative (Negative) 11/13/24 11:04 Urine Blood Negative (Negative) 11/13/24 11:04 Urine Nitrate Negative (Negative) 11/13/24 11:04 Urine Bilirubin Negative (Negative) 11/13/24 11:04 Urine Urobilinogen 1.0 mg/dL (Negative) 11/13/24 11:04 Ur Leukocyte Esterase Negative (Negative) 11/13/24 11:04 Urine RBC 0-2 /hpf (0-2) 11/13/24 11:04 Urine WBC 0-5 /hpf (0-5) 11/13/24 11:04 Ur Squamous Epith Cells 0-5 /hpf (0-5) 11/13/24 11:04 Amorphous Sediment Not Reportable 11/13/24 11:04 Urine Bacteria None seen /hpf (NONE) 11/13/24 11:04 Hyaline Casts 0-4 /lpf H 11/13/24 11:04 All radiology interpretation(s) finalized by discharge Discharge Plan Discharge Patient Disposition: Home Clinical Impression: Low back pain Qualifiers: Chronicity: acute Back pain laterality: midline Sciatica presence: without sciatica Qualified Code(s): M54.50 - Low back pain, unspecified Abdominal pain Qualifiers: Abdominal location: generalized Qualified Code(s): R10.84 - Generalized abdominal pain Condition: Stable Prescriptions: No Action ibuprofen 200 mg Tablet 600 mg PO Q6H PRN (Reason: Pain) gabapentin 300 mg capsule 300 mg PO DAILY Qty: 60 0RF Rx Instructions: Take 300mg PO QD x 1 day, then 300mg PO BID x 1 day, then 300mg PO TID thereafter Discharge Orders: Discharge ED (Routine); Ordered 11/13/24 Ordered By: Annie Guy Patient Instructions: Abdominal Pain (ED), Patient Portal & Ema Instructions Activity Restrictions/Additional Instructions: As we discussed you may return to the emergency department for any worsening of symptoms or any other concerns you may have. 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
[2024-11-13] MEDS: iohexol 350 mg/mL 500 mL Btl (per mL) IV (11:16)
[2024-11-13 11:30] LABS: Glucose Urine UA Negative (Normal); Nitrate Urine Negative (Negative); Specific Gravity, Urine 1.019 (1.005-1.030)
[2024-11-13 11:35] LABS: Add Urine Microscopic? YES
[2024-11-13 11:42] LABS: Hematocrit 42.8 % (37-53); Hemoglobin 14.90 g/dL (11.27-16.99); Mean Corpuscular HGB Conc 34.8 g/dL (30-55); Mean Corpuscular Hemoglobin 32.7 pg (27-33); Mean Corpuscular Volume 93.9 fl (82-101); Nucleated Red Blood Cells % 0 %; Platelet Count 179 10^3/cmm (157-399); Red Blood Count 4.56 10^6/uL (3.85-5.65); White Blood Count 4.26 10^3/uL (3.29-11.43)
[2024-11-13 11:45] VITALS: BP 115/82; PULSE 88; O2SAT 94
--- NOTE | 2024-11-13 11:57 | ECG_ITS ---
[facility] Date: 2024-11-13 Pat Name: Fabian Cervantes Department: Room: Gender: Male Seo Associate: : 1965 Requested By: Annie Guy Order Number: [id number] Marcus MD: Justin Lee M.D. Measurements Intervals [place] Rate: 71 P: 49 AL: 161 QRS: -11 QRSD: 82 T: 50 QT: 355 QTc: 388 Interpretive Statements SINUS RHYTHM Compared to ECG 11/13/2024 09:49:02 No significant changes Electronically Signed On 11-13-2024 17:19:16 CDT by Justin Lee M.D. [email or web address] [id number]
[2024-11-13 12:18] LABS: Slide Review Slide Review Perform
[2024-11-13 12:23] VITALS: RESP 16; O2SAT 96
[2024-11-13] MEDS: morphine 4 mg/mL SDV 1 mL IVP (12:23)
[2024-11-13] MEDS: ondansetron 2 mg/ML SDV 2 mL 4 MG IVP (12:24)
[2024-11-13 12:43] LABS: Troponin(5th) Baseline 8 ng/L (0-15)
[2024-11-13 12:50] LABS: Alanine Aminotransferase 15 U/L (0-41); Albumin Level 3.9 g/dL (3.5-5.2); Alkaline Phosphatase 123 U/L (40-130); Anion Gap 15.2 (5-19); Aspartate Amino Transferase 17 U/L (0-40); Blood Urea Nitrogen 13 mg/dL (6-20); Calcium 8.4 mg/dL (8.5-10.5); Carbon Dioxide 25 mmol/L (22-29); Chloride 100 mmol/L (98-107); Creatinine Clr Calc Pharmacy 104.3038; Globulin 2.4 g/dL (1.3-4.6); Glucose 90 mg/dL (65-115); Lipase 25 U/L (13-60); Osmolality Calculated 282 mOsm/kg (285-295); Potassium 4.2 mmol/L (3.5-5.1); Sodium 136 mmol/L (136-145); Total Protein 6.3 g/dL (6.6-8.7)
[2024-11-13 13:15] VITALS: BP 131/82; PULSE 68; O2SAT 97
== END 2024-11-13 13:16 | disposition home or self-care (01) ==
PROVIDERS: Emergency Provider Physician Assistant
DX: M54.50 Low back pain, unspecified (principal); R10.84 Generalized abdominal pain
CPT/HCPCS: 36415; 71045; 74177; 80053; 81001; 83690; 84484; 85025; 93005; 96361; 96374; 96375; 99285; J1885; J2270; J2405; J7030

== ENCOUNTER 2024-11-15 06:57 | Emergency (ER) | payer SELFPAY ==
[2024-11-15 07:02] VITALS: BP 133/92; PULSE 85; RESP 18; TEMP 36.8; O2SAT 97; BMI 26.1
--- NOTE | 2024-11-15 07:04 | W.ED.GENADLT ---
HPI - General Adult General: Chief complaint: Nausea/Vomiting/Diarrhea Stated complaint: shaky, weakness, nausea Time Seen by Provider: 11/15/24 07:03 History of Present Illness: 59-year-old male presents emergency room with complaints of shakiness described as weakness. Patient was seen 2 days ago with similar symptoms at that time he had some chest discomfort and shortness of breath as well chest x-ray CT cardiac enzymes EKG were all negative. Patient ultimately was discharged home. He returns today saying that he just feels very shaky and tired. He has not had any rash denies any abdominal or chest pain or shortness of breath. He is somewhat nauseous. He states his symptoms are worsened by eating. Associated symptoms: Reports nausea and vomiting; Deny chest pain, dyspnea or rash Related Data Home Medications ?Medication ?Instructions ?Recorded ?Confirmed ibuprofen 200 mg tablet 600 mg PO Q6H PRN Pain 05/01/24 11/15/24 Previous Rx's ?Medication ?Instructions ?Recorded famotidine 20 mg tablet 20 mg PO BID #60 tabs 11/15/24 Allergies Allergy/AdvReac Type Severity Reaction Status Date / Time Penicillins Allergy Unknown Verified 11/13/24 09:55 Review of Systems Const: Denies: fever(s) or chills Card: Denies: chest pain Resp: Denies: dyspnea GI: Reports: abdominal pain, nausea and vomiting : Denies: dysuria, urinary frequency or urinary urgency Musc: Denies: neck pain or back pain Skin/Breast: Denies: rash PFS ED PFSH: Medical History (Updated 11/15/24 @ 08:32 by Darci Caceres DO) Major depression, recurrent Vitamin D deficiency Physical Exam Const: GENERAL APPEARANCE: cooperative ORIENTATION/CONSCIOUSNESS: Yes awake, Yes oriented to person, Yes oriented to place and Yes oriented to time HENMT: COMMON NORMALS: normocephalic, atraumatic and hearing grossly normal bilaterally HEAD & SCALP: normocephalic and atraumatic Resp: COMMON NORMALS: normal respiratory effort, No retractions, No use of accessory muscles and clear to auscultation bilaterally AUSCULTATION: clear to auscultation bilaterally Cardio: COMMON NORMALS: regular rate, regular rhythm and No murmurs present (Cardio) RATE: regular rate RHYTHM: regular rhythm GI: COMMON NORMALS: Soft to palpation and No hepatosplenomegaly present AUSCULTATION: Yes normoactive bowel sounds PALPATION: Yes Soft to palpation, No Tenderness to palpation present (GI), No Guarding due to palpation present (GI) and Yes No hepatosplenomegaly present Extremity: COMMON NORMALS: normal to inspection, capillary refill normal, no clubbing, cyanosis or edema, no calf tenderness and no pedal edema Neuro: SENSORIUM/ORIENTATION: Yes oriented to person, Yes oriented to place and Yes oriented to time Skin: COMMON NORMALS: no rashes or lesions noted GENERAL SKIN EXAM: no rashes or lesions noted Course Vital Signs: Vital signs: Vital Signs Temperature 98.3 F 11/15/24 07:02 Pulse Rate 73 11/15/24 08:34 Respiratory Rate 18 11/15/24 07:13 Blood Pressure 126/95 11/15/24 08:34 Pulse Oximetry 94 11/15/24 08:34 Oxygen Delivery Me thod Room Air 11/15/24 07:40 MDM - General Adult Medical Decision Making Labs unremarkable with mild elevation of the alk phos gallbladder ultrasound unremarkable. His symptoms while somewhat GI-related do not sound convincingly like biliary colic. Will start him on famotidine gave him a reflux diet to have him follow-up with primary care. Tick panel is pending although low probability patient has no rash no recollection of being bitten by tick. Medical Records I reviewed the patient's medical records. Lab Data I reviewed the patient's lab results. 11/15/24 07:09 11/15/24 07:09 Radiology Impressions Gallbladder Ultrasound 11/15/24 07:25 IMPRESSION: 1. Normal gallbladder. 2. Mild hepatomegaly. 3. No mass or abnormal free fluid collection in the RIGHT abdomen. Laboratory Results WBC 5.12 10^3/uL (3.29-11.43) 11/15/24 07:09 RBC 4.51 10^6/uL (3.85-5.65) 11/15/24 07:09 Hgb 14.80 g/dL (11.27-16.99) 11/15/24 07:09 Hct 43.0 % (37-53) 11/15/24 07:09 MCV 95.3 fl (82-101) 11/15/24 07:09 MCH 32.8 pg (27-33) 11/15/24 07:09 MCHC 34.4 g/dL (30-55) 11/15/24 07:09 RDW 11.9 % (12.1-15.1) L 11/15/24 07:09 Plt Count 206 10^3/cmm (157-399) 11/15/24 07:09 MPV 8.9 fL (7.4-10.4) 11/15/24 07:09 Neut % (Auto) 37.7 % 11/15/24 07:09 Lymph % (Auto) 28.9 % 11/15/24 07:09 [place] % (Auto) 11.5 % 11/15/24 07:09 Eos % (Auto) 1.8 % 11/15/24 07:09 Baso % (Auto) 0.6 % 11/15/24 07:09 Neut # (Auto) 1.93 10^3/uL (1.8-7.7) 11/15/24 07:09 Lymph # (Auto) 1.5 10^3/uL (0.8-4.8) 11/15/24 07:09 [place] # (Auto) 0.6 10^3/uL (0.2-0.9) 11/15/24 07:09 Eos # (Auto) 0.1 10^3/uL (0.0-0.8) 11/15/24 07:09 Baso # (Auto) 0.0 10^3/uL (0.0-0.1) 11/15/24 07:09 Nucleated RBC % (auto) 0 % 11/15/24 07:09 Nucleated RBCs # 0.0 /100WBC 11/15/24 07:09 Sodium 141 mmol/L (136-145) 11/15/24 07:09 Potassium 4.2 mmol/L (3.5-5.1) 11/15/24 07:09 Chloride 104 mmol/L (98-107) 11/15/24 07:09 Carbon Dioxide 26 mmol/L (22-29) 11/15/24 07:09 Anion Gap 15.2 (5-19) 11/15/24 07:09 BUN 11 mg/dL (6-20) 11/15/24 07:09 Creatinine 1.0 mg/dL (0.7-1.2) 11/15/24 07:09 GFR Calculation 76.5 mL/min (90-130) L 11/15/24 07:09 Glucose 114 mg/dL (65-115) 11/15/24 07:09 Calculated Osmolality 292 mOsm/kg (285-295) 11/15/24 07:09 Calcium 9.2 mg/dL (8.5-10.5) 11/15/24 07:09 Total Bilirubin 0.5 mg/dL (0.15-1.2) 11/15/24 07:09 AST 16 U/L (0-40) 11/15/24 07:09 ALT 17 U/L (0-41) 11/15/24 07:09 Alkaline Phosphatase 142 U/L (40-130) H 11/15/24 07:09 Total Protein 7.1 g/dL (6.6-8.7) 11/15/24 07:09 Albumin 4.1 g/dL (3.5-5.2) 11/15/24 07:09 Globulin 3.0 g/dL (1.3-4.6) 11/15/24 07:09 Urine Color Yellow (Yellow) 11/15/24 07:24 Urine Appearance Clear (CLEAR) 11/15/24 07:24 Urine pH 5.5 (5-7) 11/15/24 07:24 Ur Specific [place] 1.021 (1.005-1.030) 11/15/24 07:24 Urine Protein Negative (Negative) 11/15/24 07:24 Urine Glucose (UA) Negative (Normal) 11/15/24 07:24 Urine Ketones Trace (Negative) 11/15/24 07:24 Urine Blood Trace (Negative) A 11/15/24 07:24 Urine Nitrate Negative (Negative) 11/15/24 07:24 Urine Bilirubin Negative (Negative) 11/15/24 07:24 Urine Urobilinogen 1.0 mg/dL (Negative) 11/15/24 07:24 Ur Leukocyte Esterase Negative (Negative) 11/15/24 07:24 Urine RBC 0-2 /hpf (0-2) 11/15/24 07:24 Urine WBC 0-5 /hpf (0-5) 11/15/24 07:24 Ur Squamous Epith Cells 0-5 /hpf (0-5) 11/15/24 07:24 Amorphous Sediment Not Reportable 11/15/24 07:24 Urine Bacteria None seen /hpf (NONE) 11/15/24 07:24 Hyaline Casts 0.40 /lpf 11/15/24 07:24 Influenza A (PCR) Negative (Negative) 11/15/24 07:24 Influenza Type B (PCR) Negative (Negative) 11/15/24 07:24 RSV (PCR) Negative (Negative) 11/15/24 07:24 SARS-CoV-2 (PCR) Negative (Negative) 11/15/24 07:24 No radiology studies performed this visit EKG Data EKG 1: Interpretation: EKG November 15, 2024 normal sinus rhythm ventricular rate 75 MS interval 163 QTc [address] changes noted. Compared to EKG 11/13/2024 9:49 AM no acute changes noted Computer generated interpretation: Gallbladder Ultrasound 11/15/24 07:25 IMPRESSION: 1. Normal gallbladder. 2. Mild hepatomegaly. 3. No mass or abnormal free fluid collection in the RIGHT abdomen. Discharge Plan Discharge Patient Disposition: Home Clinical Impression: Weakness, Dyspepsia Condition: Stable Prescriptions: New famotidine 20 mg tablet 20 mg PO BID Qty: 60 0RF No Action ibuprofen 200 mg Tablet 600 mg PO Q6H PRN (Reason: Pain) Discharge Orders: Discharge ED (Routine); Ordered 11/15/24 Ordered By: Darci Caceres Discharge Diet: As Directed Patient Instructions: Diet for Stomach Ulcers and Gastritis (ED), GERD (Gastroesophageal Reflux Disease) (ED), Opioid Safety, Pain Management, Patient Portal & Ema Instructions Activity Restrictions/Additional Instructions: Thank you for choosing [facility] for your healthcare needs today. It is very important that you follow up as instructed or that you return to the Emergency Department should you have concerns or if your condition changes or worsens in any way. 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
--- NOTE | 2024-11-15 07:05 | ECG_ITS ---
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 Measurements Intervals [place] Rate: 75 P: 61 [place]: 163 QRS: 0 QRSD: 90 T: 55 QT: 350 QTc: 391 Interpretive Statements SINUS RHYTHM Compared to ECG 11/13/2024 11:50:09 No significant changes Electronically Signed On 11-16-2024 15:23:35 CDT by Justin Lee M.D. [id number] [id number]
--- NOTE | 2024-11-15 07:11 | PC.NURSE ---
pt educated on need for urine sample, provided pt with urine cup.
[2024-11-15 07:13] VITALS: BP 133/92; PULSE 84; RESP 18; O2SAT 97
[2024-11-15 07:20] LABS: Hematocrit 43.0 % (37-53); Hemoglobin 14.80 g/dL (11.27-16.99); Mean Corpuscular HGB Conc 34.4 g/dL (30-55); Mean Corpuscular Hemoglobin 32.8 pg (27-33); Mean Corpuscular Volume 95.3 fl (82-101); Nucleated Red Blood Cells % 0 %; Platelet Count 206 10^3/cmm (157-399); Red Blood Count 4.51 10^6/uL (3.85-5.65); White Blood Count 5.12 10^3/uL (3.29-11.43)
--- NOTE | 2024-11-15 07:25 | US_ITS ---
WS: [id number] Exam: US gall bladder [id number] Date/Time of Exam: 11/15/2024 7:56 AM Reason For Exam: abd pain nausea The gallbladder is unremarkable. Minimal hepatomegaly. The liver measures 17.3 cm in greatest dimension. No biliary dilatation identified. No focal hepatic mass or nodule. Normal-appearing common bile duct measures 4 mm in greatest diameter. The IVC and abdominal aorta are unremarkable. No mass or free fluid in the RIGHT abdomen. Normal-appearing RIGHT kidney measures 10.4 x 6.2 x 6.5 cm. US/US gall bladder [id number] IMPRESSION: 1. Normal gallbladder. 2. Mild hepatomegaly. 3. No mass or abnormal free fluid collection in the RIGHT abdomen.
[2024-11-15 07:34] LABS: Alanine Aminotransferase 17 U/L (0-41); Albumin Level 4.1 g/dL (3.5-5.2); Alkaline Phosphatase 142 U/L (40-130); Anion Gap 15.2 (5-19); Aspartate Amino Transferase 16 U/L (0-40); Blood Urea Nitrogen 11 mg/dL (6-20); Calcium 9.2 mg/dL (8.5-10.5); Carbon Dioxide 26 mmol/L (22-29); Chloride 104 mmol/L (98-107); Creatinine Clr Calc Pharmacy 86.4243; Globulin 3.0 g/dL (1.3-4.6); Glucose 114 mg/dL (65-115); Osmolality Calculated 292 mOsm/kg (285-295); Potassium 4.2 mmol/L (3.5-5.1); Sodium 141 mmol/L (136-145); Total Protein 7.1 g/dL (6.6-8.7)
[2024-11-15 07:40] VITALS: PULSE 75; O2SAT 98
[2024-11-15] MEDS: lidocaine 2% viscous 15 ML, aluminum-mag hydrox-simethicon 30 ML, sucralfate oral liq 1 GM PO (07:40)
[2024-11-15 07:52] LABS: Glucose Urine UA Negative (Normal); Nitrate Urine Negative (Negative); Specific Gravity, Urine 1.021 (1.005-1.030)
[2024-11-15 07:55] LABS: Add Urine Microscopic? YES
[2024-11-15 07:59] LABS: Slide Review Slide Review Perform
[2024-11-15 08:19] VITALS: BP 132/92; PULSE 68; O2SAT 95
[2024-11-15 08:20] LABS: Respiratory Syncytial Virus Ce NEGATIVE (Negative); SARS-CoV-2 PCR NEGATIVE (Negative)
[2024-11-15 08:34] VITALS: BP 126/95; PULSE 73; O2SAT 94
== END 2024-11-15 08:43 | disposition home or self-care (01) ==
PROVIDERS: Emergency Provider Family Medicine
DX: R53.1 Weakness (principal); R10.13 Epigastric pain; R11.2 Nausea with vomiting, unspecified; Z88.0 Allergy status to penicillin; Z11.52 Encounter for screening for COVID-19
CPT/HCPCS: 76705; 80053; 81001; 85025; 86618; 86666; 86757; 87637; 93005; 99284; J9999